=== PATIENT | male | born 2000 | race African-American/Black ===

== ENCOUNTER 2019-08-09 19:31 | Emergency (ER) | payer SELFPAY ==
[~2019-08-09] VITALS: Ht 175.3 cm; Wt 79.0 kg
[2019-08-10 03:00] VITALS: BP 112/67
== END 2019-08-10 05:00 | disposition home or self-care (01) ==
LOC: ER 19:31
DX: F12.929 Cannabis use, unspecified with intoxication, unspecified (principal); Z88.6 Allergy status to analgesic agent
CPT/HCPCS: 99283